=== PATIENT | female | born 1940 | race Two or more races ===

== ENCOUNTER 2019-05-22 08:02 | Outpatient (CLI) | payer OTHER | END 2019-05-22 08:05 | disposition home or self-care (01) | LOC: SONOGRAMA 08:02 | DX: E04.8 Other specified nontoxic goiter (principal) ==

== ENCOUNTER 2020-12-01 07:57 | Outpatient (CLI) | payer OTHER | END 2020-12-01 08:00 | disposition home or self-care (01) | LOC: SONOGRAMA 07:57 | PROVIDERS: ATTEND Pathology Anatomic Pathology & Clinical Pathology | DX: E04.8 Other specified nontoxic goiter (principal); E07.89 Other specified disorders of thyroid; E04.1 Nontoxic single thyroid nodule; D34 Benign neoplasm of thyroid gland ==